=== PATIENT | female | born 2000 | race African-American/Black ===

== ENCOUNTER 2018-10-25 22:43 | Emergency (ER) | payer SELFPAY ==
[2018-10-25 22:53] VITALS: BP 114/66
[2018-10-26 00:20] LABS: APPEARANCE,URINE SLIGHTLY-CLOUDY; BILIRUBIN,URINE NEGATIVE (NEGATIVE); COLOR,URINE YELLOW; GLUCOSE, URINE NEGATIVE (NEGATIVE); KETONES,URINE NEGATIVE (NEGATIVE); LEUKOCYTE ESTERASE,URINE NEGATIVE (NEGATIVE); NITRITE,URINE NEGATIVE (NEGATIVE); PROTEIN,URINE NEGATIVE (NEGATIVE); URINE SPECIFIC GRAVITY 1.019
--- NOTE | 2018-10-26 00:54 | ER Document Report ---
HPI - HPI Time Seen by Provider: 10/26/18 00:52 Pain Level: 2 Notes: Patient is an otherwise healthy 18-year-old female presents the emergency department request for test. At the time of my initial evaluation the nursing staff at already collected and ordered a urinalysis and a urine hCG. Patient reports she is requesting a test that she has had some persistent nausea over the last several weeks. She also reports that she has a Nexplanon in place. She has not taken a home test. - REPRODUCTIVE Reproductive: DENIES: : Past Medical History - General Information source: Patient - Social History Smoking Status: Never Smoker Frequency of alcohol use: None Drug Abuse: None Family History: Reviewed & Not Pertinent - Medical History Medical History: Negative Surgical Hx: Negative - Immunizations Immunizations up to date: Yes Vertical Provider Document - CONSTITUTIONAL Notes: PHYSICAL EXAMINATION: GENERAL: Well-appearing, well-nourished and in no acute distress. HEAD: Atraumatic, normocephalic. EYES: Pupils equal round extraocular movements intact, conjunctiva are normal. ENT: Nares patent NECK: Normal range of motion LUNGS: No respiratory distress Musculoskeletal: Normal range of motion NEUROLOGICAL: Normal speech, normal gait. PSYCH: Normal mood, normal affect. SKIN: Warm, Dry, normal turgor, no rashes or lesions noted. - INFECTION CONTROL TRAVEL OUTSIDE OF THE [place] IN LAST 30 DAYS: No Course - Re-evaluation Re-evalutation: Laboratory 10/25/18 23:50 Urine Color YELLOW Urine Appearance SLIGHTLY-CLOUDY Urine pH 6.0 Ur Specific [place] 1.019 Urine Protein NEGATIVE Urine Glucose (UA) NEGATIVE Urine Ketones NEGATIVE Urine Blood NEGATIVE Urine Nitrite NEGATIVE Urine Bilirubin NEGATIVE Urine Urobilinogen 4.0 H Ur Leukocyte Esterase NEGATIVE Urine WBC (Auto) 1 Urine RBC (Auto) 0 Urine Bacteria (Auto) TRACE Squamous Epi Cells Auto 7 Urine Mucus (Auto) RARE Urine Ascorbic Acid NEGATIVE Urine HCG, Qual NEGATIVE Labs as recorded were unremarkable. hCG was negative. Test results were discussed with patient, patient verbalizes understanding and agreement with test results. Patient will be discharged home in stable condition. - Vital Signs Vital signs: Temp Pulse Resp BP Pulse Ox 98.1 F 86 18 114/66 99 10/25/18 22:52 10/25/18 22:52 10/25/18 22:52 10/25/18 22:52 10/25/18 22:52 - Laboratory Laboratory results interpreted by me: 10/25/18 23:50 Urine Urobilinogen 4.0 H Discharge - Discharge Clinical Impression: test negative, Nausea Condition: Stable Disposition: HOME, SELF-CARE Additional Instructions: Your test here in the emergency department today was negative. I have prescribed you a nausea medication called Zofran. Please take this as prescribed. If you continue to have symptoms of please repeat a test in 1 week, you may do this at the health department or you may purchase an [id number] test. Prescriptions: Ondansetron [Zofran Odt 4 mg Tablet] 1 - 2 tab PO Q4H PRN #15 tab.rapdis PRN Reason: For Nausea/Vomiting Forms: Return to Work
== END 2018-10-26 01:36 | disposition home or self-care (01) ==
LOC: ER 22:43
DX: R11.0 Nausea (principal); Z32.02 Encounter for pregnancy test, result negative
CPT/HCPCS: 81001; 81025; 99282